=== PATIENT | male | born 1970 | race Two or more races ===

== ENCOUNTER → 2024-11-10 | Outpatient (CLI) | payer BC, SELFPAY ==
--- NOTE | 2024-11-10 15:00 | XR_ITS ---
Examination: Abdomen sonogram, Limited Date and time of exam: August 10, 2025 1435 hrs. Indications: Lower abdominal discomfort beginning one month ago Technique: Real-time lentz scale transabdominal sonographic images of the upper abdomen obtained. Findings: Normal gallbladder Normal common bile duct 0.3 cm Pancreatic head 2.70 Liver 12.9 cm fatty infiltration no focal liver lesions Normal hepatopedal portal venous flow Patent IVC Impression: Normal gallbladder Normal common bile duct Fatty liver
== END | disposition home or self-care (01) ==
PROVIDERS: PCP Family Medicine; Referring Provider Internal Medicine Gastroenterology; Visit Provider Internal Medicine Gastroenterology
DX: K76.0 Fatty (change of) liver, not elsewhere classified (principal)
CPT/HCPCS: 76705

== ENCOUNTER 2024-12-08 09:40 | Day surgery (SDC) | payer BC, SELFPAY ==
[2024-12-08] VITALS (15 sets, daily range): BP systolic 106–160; BP diastolic 69–89; PULSE 51–71; RESP 9–29; TEMP 36.4–36.9; O2SAT 98–100; BMI 17.4
[2024-12-08] MEDS: SODIUM CHLORIDE 0.9% 500 ML 500 ML 20 ML IV (12:24)
[2024-12-08] MEDS: fentaNYL CIT INJ 50 mCg/ML AMP 2ML (ASD USE ONLY) IV (12:25)
[2024-12-08] MEDS: MIDAZOLAM INJ 1 MG/ML VIAL 2 ML (ASD USE ONLY) 2 MG IV (12:25)
[2024-12-08] MEDS: DiphenhydrAMINE INJ 50 MG/ML VIAL 25 MG IV (12:26)
[2024-12-08] MEDS: SIMETHICONE 40 MG/0.6 ML ORAL SYRINGE PO (12:32)
== END 2024-12-08 13:27 | disposition home or self-care (01) ==
PROVIDERS: PCP Family Medicine; Referring Provider Internal Medicine Gastroenterology; Visit Provider Internal Medicine Gastroenterology
PROC: (CPT 43239; principal; 2024-12-08 10:45)
PROC: 0DBE8ZX Excision of Large Intestine, Via Natural or Artificial Opening Endoscopic, Diagnostic (ICD-10-PCS; CPT 45380; 2024-12-08 10:45)
DX: K29.70 Gastritis, unspecified, without bleeding (principal); K22.89 Other specified disease of esophagus; K44.9 Diaphragmatic hernia without obstruction or gangrene; K31.89 Other diseases of stomach and duodenum; K29.50 Unspecified chronic gastritis without bleeding; B96.81 Helicobacter pylori [H. pylori] as the cause of diseases classified elsewhere; K20.80 Other esophagitis without bleeding; D12.0 Benign neoplasm of cecum; D12.5 Benign neoplasm of sigmoid colon
CPT/HCPCS: 43239; A4649; J1200; J2250; J3010; J7040; A9270